=== PATIENT | male | born 1955 | race Caucasian/White ===

== ENCOUNTER 2018-04-27 17:25 | Inpatient (IN) | payer MEDICAID ==
[~2018-04-27] VITALS: Ht 182.9 cm; Wt 88.5 kg
[~2018-04-27 17:25] MED LIST: PANT-47 PO
[2018-04-27 17:49] LABS: BASOPHILS % (AUTO) 0.2 % (0-1); EOSINOPHILS # (AUTO) 0.1 X10'3 (0-0.9); EOSINOPHILS % (AUTO) 1.2 % (0-6); HEMATOCRIT 45.1 % (42.0-52.0); HEMOGLOBIN 15.6 g/dl (14.0-17.9); LYMPHOCYTES # (AUTO) 1.7 X10'3 (1.1-4.8); LYMPHOCYTES % (AUTO) 15.8 % (21-51); MEAN CORPUSCULAR HEMOGLOBIN 32.3 PG (27.0-31.0); MEAN CORPUSCULAR HGB CONC 34.5 % (33.0-36.5); MEAN CORPUSCULAR VOLUME 93.5 FL (78-98); MEAN PLATELET VOLUME 8.3 FL (7.4-10.4); NEUTROPHILS % (AUTO) 73.8 % (42-75); PLATELET COUNT 214 X10'3 (140-440); RED BLOOD COUNT 4.82 X10'6 (4.70-6.10); WHITE BLOOD COUNT 10.8 X10'3 (4.5-11.0)
[2018-04-27 18:01] LABS: INR 1.1 INR; PARTIAL THROMBOPLASTIN TIME 27 SECONDS (22-32)
[2018-04-27 18:05] LABS: ALANINE AMINOTRANSFERASE 81 U/L (12-78); ALBUMIN 3.3 G/DL (3.4-5.0); ALBUMIN/GLOBULIN RATIO 1.3 (1.1-1.5); ALKALINE PHOSPHATASE 70 IU/L (46-116); ANION GAP 15 (8-16); ASPARTATE AMINO TRANSFERASE 41 U/L (10-37); BILIRUBIN,TOTAL 1.1 MG/DL (0.1-1.0); BLOOD UREA NITROGEN 16 MG/DL (7-18); BUN/CREATININE RATIO 15.7 (5.4-32.0); CALCIUM 8.3 MG/DL (8.5-10.1); CHLORIDE 102 MMOL/L (99-107); CREATININE 1.02 MG/DL (0.60-1.10); GLUCOSE 117 MG/DL (70-104); POTASSIUM 3.6 MMOL/L (3.5-5.1); SODIUM 135 MMOL/L (135-145); TOTAL CARBON DIOXIDE 18.5 MMOL/L (24-32); TOTAL PROTEIN 5.9 G/DL (6.4-8.2); eGFR 74 ML/MIN
[2018-04-27] MEDS ORDERED: IBUP-1984 PO (18:21)
[2018-04-27] MEDS ORDERED: aspirin 81mg tab.chew PO ONE (18:45)
[2018-04-27] MEDS ORDERED: enoxaparin 100mg/ml syringe SUBCUT ONE (18:45)
[2018-04-27 19:19] LABS: URINE AMPHETAMINE SCREEN NEGATIVE (Neg); URINE BARBITUATE SCREEN NEGATIVE (Neg); URINE BENZODIAZEPINES SCREEN NEGATIVE (Neg); URINE CANNABINOID SCREEN NEGATIVE (Neg); URINE COCAINE SCREEN NEGATIVE (Neg); URINE METHADONE SCREEN NEGATIVE (Neg); URINE OPIATE SCREEN NEGATIVE (Neg); URINE PHENCYCLIDINE SCREEN NEGATIVE (Neg)
[2018-04-27] MEDS ORDERED: metoprolol tartrate 1mg/ml inj IV ONE (19:30)
[2018-04-27] MEDS ORDERED: morphine 4 MG/ML inj SYRINge IV ONE (19:45)
[2018-04-27 19:53] LABS: MAGNESIUM 1.7 MG/DL (1.5-2.4)
[2018-04-27] MEDS ORDERED: acetaminophen 325mg tablet PO PRN (21:50)
[2018-04-27] MEDS: regadenoson 0.4mg/5ml syringe IV ONE (21:50)
[2018-04-27] MEDS ORDERED: magnesium 1gm/100ml D5W IVPB 100 ML IV PRN (21:50)
[2018-04-27] MEDS: nicotine 14mg patch - 24hr TD SCH (21:50)
[2018-04-27] MEDS ORDERED: metoprolol tartrate 1mg/ml inj IV PRN (21:50)
[2018-04-27] MEDS ORDERED: magnesium hydroxide 30ml (MOM) UD suspension PO PRN (21:50)
[2018-04-27] MEDS ORDERED: potassium Cl 40MEQ/NS 500ml 500 ML IV PRN ×2 (21:50)
[2018-04-27] MEDS ORDERED: ipratropium/albuterol 3ml nebule NEB PRN (21:50)
[2018-04-27] MEDS ORDERED: magnesium 4gm in 100ml NS 100 ML IV PRN (21:50)
[2018-04-27] MEDS ORDERED: ondansetron/PF 4mg/2ml inj IV PRN (21:50)
[2018-04-27] MEDS ORDERED: nitroGLYCERIN 0.4mg SUBLingual tab SL PRN (21:50)
[2018-04-27] MEDS ORDERED: CAFFEINE CITRATE 60 MG/3 ML injection vial IV PRN (21:50)
[2018-04-27] MEDS ORDERED: morphine 2 MG/ML inj. syringe IV PRN (21:50)
[2018-04-27] MEDS ORDERED: potassium Cl 20 mEq SR tablet PO PRN ×2 (21:50)
[2018-04-27] MEDS ORDERED: mag hydrox/Alum hydrox/simeth 30ml oral suspension PO PRN (21:50)
[2018-04-27 22:45] VITALS: BP 140/104
[2018-04-27] MEDS: furosemide 10 MG/1 ML 10ml inj IV SCH (23:11)
[2018-04-27] MEDS: atorvastatin 20mg tablet PO SCH (23:12)
[2018-04-28] VITALS (16 sets, daily range): BP systolic 109–169; BP diastolic 73–113
[2018-04-28 06:15] LABS: BASOPHILS % (AUTO) 0.3 % (0-1); EOSINOPHILS # (AUTO) 0.2 X10'3 (0-0.9); EOSINOPHILS % (AUTO) 2.1 % (0-6); HEMATOCRIT 43.9 % (42.0-52.0); HEMOGLOBIN 15.5 g/dl (14.0-17.9); LYMPHOCYTES # (AUTO) 1.8 X10'3 (1.1-4.8); LYMPHOCYTES % (AUTO) 19.1 % (21-51); MEAN CORPUSCULAR HEMOGLOBIN 32.5 PG (27.0-31.0); MEAN CORPUSCULAR HGB CONC 35.3 % (33.0-36.5); MEAN CORPUSCULAR VOLUME 92.1 FL (78-98); MEAN PLATELET VOLUME 8.1 FL (7.4-10.4); NEUTROPHILS # (AUTO) 6.4 X10'3 (1.8-7.7); NEUTROPHILS % (AUTO) 67.5 % (42-75); PLATELET COUNT 197 X10'3 (140-440); RED BLOOD COUNT 4.77 X10'6 (4.70-6.10); RED CELL DISTRIBUTION WIDTH 13.8 % (11.5-14.5); WHITE BLOOD COUNT 9.5 X10'3 (4.5-11.0)
[2018-04-28 06:28] LABS: ALANINE AMINOTRANSFERASE 78 U/L (12-78); ALBUMIN 3.1 G/DL (3.4-5.0); ALBUMIN/GLOBULIN RATIO 1.2 (1.1-1.5); ALKALINE PHOSPHATASE 60 IU/L (46-116); ANION GAP 9 (8-16); ASPARTATE AMINO TRANSFERASE 39 U/L (10-37); BILIRUBIN,TOTAL 1.8 MG/DL (0.1-1.0); BLOOD UREA NITROGEN 15 MG/DL (7-18); BUN/CREATININE RATIO 13.5 (5.4-32.0); CALCIUM 8.1 MG/DL (8.5-10.1); CHLORIDE 103 MMOL/L (99-107); CREATININE 1.11 MG/DL (0.60-1.10); GLUCOSE 97 MG/DL (70-104); POTASSIUM 3.7 MMOL/L (3.5-5.1); SODIUM 138 MMOL/L (135-145); TOTAL CARBON DIOXIDE 26.1 MMOL/L (24-32); TOTAL PROTEIN 5.7 G/DL (6.4-8.2); eGFR 68 ML/MIN
[2018-04-28 06:32] LABS: CHOL/HDL RATIO 3.5 (0.00-4.99); CHOLESTEROL 114 MG/DL (0-200); HDL CHOLESTEROL 33 MG/DL (35-60); LDL CHOLESTEROL 73 MG/DL (50-100); MAGNESIUM 1.6 MG/DL (1.5-2.4); TRIGLYCERIDES 90 MG/DL (20-135)
[2018-04-28] MEDS: nitroGLYCERIN 0.4mg/hour patch TD SCH (08:00)
[2018-04-28] MEDS: K and/or MAG REPLACEMENT MC SCH (08:00)
[2018-04-28] MEDS: nicotine 14mg patch - 24hr TD SCH (08:00)
[2018-04-28] MEDS ORDERED: carVEDilol 3.125mg tablet PO SCH (08:00)
[2018-04-28] MEDS: pantoprazole 40 MG vial IV SCH (08:28)
[2018-04-28] MEDS: furosemide 10 MG/1 ML 10ml inj IV SCH (08:28)
[2018-04-28] MEDS: enoxaparin 60mg/0.6ml syringe SUBCUT SCH ×2 (08:29→20:46)
[2018-04-28] MEDS: atorvastatin 20mg tablet PO SCH (08:30)
[2018-04-28] MEDS: enoxaparin 30mg/0.3ml syringe SUBCUT SCH ×2 (08:30→20:47)
[2018-04-28] MEDS ORDERED: CAFFEINE CITRATE 60 MG/3 ML injection vial IV ONE (09:24)
[2018-04-28] MEDS: regadenoson 0.4mg/5ml syringe IV ONE (09:24)
[2018-04-28] MEDS ORDERED: regadenoson 0.4mg/5ml syringe IV ONE (09:24)
[2018-04-28] MEDS ORDERED: potassium Cl 20 mEq SR tablet PO STA (10:52)
[2018-04-28] MEDS ORDERED: magnesium 4gm in 100ml NS 100 ML IV ONE (10:55)
[2018-04-28] MEDS ORDERED: carVEDilol 3.125mg tablet PO ONE (11:00)
[2018-04-28] MEDS ORDERED: heparin sodium, porcine/PF 100unit/ml 5ML syringe ONE (11:23)
[2018-04-28] MEDS: lisinopril 5mg tablet PO SCH (11:44)
[2018-04-28] MEDS ORDERED: iohexol 350MG/ML 100ml bottle IV ONE (11:56)
[2018-04-28] MEDS: amiodarone 200mg tablet PO SCH ×2 (14:02→20:45)
[2018-04-28] MEDS: morphine 4 MG/ML inj SYRINge IV PRN ×2 (17:35→21:53)
[2018-04-28] MEDS: carVEDilol 3.125mg tablet PO SCH (20:46)
[2018-04-29 02:00] VITALS: BP 97/66
[2018-04-29 06:00] VITALS: BP 106/74
[2018-04-29 06:18] LABS: ALANINE AMINOTRANSFERASE 64 U/L (12-78); ALBUMIN 2.9 G/DL (3.4-5.0); ALBUMIN/GLOBULIN RATIO 1.1 (1.1-1.5); ALKALINE PHOSPHATASE 67 IU/L (46-116); ANION GAP 5 (8-16); ASPARTATE AMINO TRANSFERASE 23 U/L (10-37); BILIRUBIN,TOTAL 1.4 MG/DL (0.1-1.0); BLOOD UREA NITROGEN 22 MG/DL (7-18); BUN/CREATININE RATIO 17.1 (5.4-32.0); CHLORIDE 100 MMOL/L (99-107); CREATININE 1.29 MG/DL (0.60-1.10); GLUCOSE 143 MG/DL (70-104); POTASSIUM 3.5 MMOL/L (3.5-5.1); SODIUM 136 MMOL/L (135-145); TOTAL CARBON DIOXIDE 31.2 MMOL/L (24-32); TOTAL PROTEIN 5.5 G/DL (6.4-8.2); eGFR 57 ML/MIN
[2018-04-29 06:41] LABS: BASOPHILS % (AUTO) 0.4 % (0-1); EOSINOPHILS # (AUTO) 0.3 X10'3 (0-0.9); EOSINOPHILS % (AUTO) 2.5 % (0-6); HEMATOCRIT 43.6 % (42.0-52.0); LYMPHOCYTES # (AUTO) 1.7 X10'3 (1.1-4.8); MEAN CORPUSCULAR HEMOGLOBIN 31.8 PG (27.0-31.0); MEAN CORPUSCULAR HGB CONC 34.4 % (33.0-36.5); MEAN CORPUSCULAR VOLUME 92.4 FL (78-98); MEAN PLATELET VOLUME 8.9 FL (7.4-10.4); MONOCYTES # (AUTO) 0.9 X10'3 (0-0.9); NEUTROPHILS # (AUTO) 7.5 X10'3 (1.8-7.7); NEUTROPHILS % (AUTO) 72.1 % (42-75); PLATELET COUNT 187 X10'3 (140-440); RED BLOOD COUNT 4.72 X10'6 (4.70-6.10); RED CELL DISTRIBUTION WIDTH 13.8 % (11.5-14.5); WHITE BLOOD COUNT 10.3 X10'3 (4.5-11.0)
[2018-04-29] MEDS: pantoprazole 40 MG vial IV SCH (07:17)
[2018-04-29] MEDS: morphine 4 MG/ML inj SYRINge IV PRN ×4 (07:18→21:20)
[2018-04-29] MEDS: furosemide 10 MG/1 ML 10ml inj IV SCH (07:19)
[2018-04-29] MEDS: enoxaparin 30mg/0.3ml syringe SUBCUT SCH (07:20)
[2018-04-29] MEDS: enoxaparin 60mg/0.6ml syringe SUBCUT SCH (07:21)
[2018-04-29] MEDS: atorvastatin 20mg tablet PO SCH (07:21)
[2018-04-29] MEDS: amiodarone 200mg tablet PO SCH ×2 (07:21→19:59)
[2018-04-29] MEDS: carVEDilol 3.125mg tablet PO SCH ×2 (07:21→19:59)
[2018-04-29] MEDS: lisinopril 5mg tablet PO SCH (07:21)
[2018-04-29] MEDS: aspirin 81mg tablet.DR PO SCH (07:23)
[2018-04-29] MEDS: nicotine 14mg patch - 24hr TD SCH (07:23)
[2018-04-29] MEDS: nitroGLYCERIN 0.4mg/hour patch TD SCH (07:24)
[2018-04-29] MEDS ORDERED: enoxaparin 40mg/0.4ml syringe SUBCUT SCH (08:00)
[2018-04-29] MEDS: K and/or MAG REPLACEMENT MC SCH (08:00)
[2018-04-29 11:00] VITALS: BP 111/68
[2018-04-29 15:00] VITALS: BP 95/68
[2018-04-29 18:00] VITALS: BP 102/73
[2018-04-29] MEDS ORDERED: lisinopril 5mg tablet PO SCH (21:00)
[2018-04-29 22:00] VITALS: BP 101/76
[2018-04-30 02:00] VITALS: BP 108/77
[2018-04-30 06:00] VITALS: BP 123/84
[2018-04-30 06:08] LABS: BASOPHILS % (AUTO) 0.1 % (0-1); EOSINOPHILS # (AUTO) 0.1 X10'3 (0-0.9); EOSINOPHILS % (AUTO) 0.7 % (0-6); HEMATOCRIT 41.7 % (42.0-52.0); HEMOGLOBIN 14.7 g/dl (14.0-17.9); LYMPHOCYTES # (AUTO) 0.9 X10'3 (1.1-4.8); LYMPHOCYTES % (AUTO) 8.2 % (21-51); MEAN CORPUSCULAR HEMOGLOBIN 32.8 PG (27.0-31.0); MEAN CORPUSCULAR HGB CONC 35.2 % (33.0-36.5); MEAN CORPUSCULAR VOLUME 93.2 FL (78-98); MEAN PLATELET VOLUME 8.7 FL (7.4-10.4); MONOCYTES # (AUTO) 0.7 X10'3 (0-0.9); MONOCYTES % (AUTO) 6.6 % (2-12); NEUTROPHILS # (AUTO) 9.3 X10'3 (1.8-7.7); NEUTROPHILS % (AUTO) 84.4 % (42-75); PLATELET COUNT 185 X10'3 (140-440); RED BLOOD COUNT 4.48 X10'6 (4.70-6.10); RED CELL DISTRIBUTION WIDTH 13.5 % (11.5-14.5)
[2018-04-30 07:01] LABS: ALANINE AMINOTRANSFERASE 59 U/L (12-78); ALBUMIN/GLOBULIN RATIO 1.1 (1.1-1.5); ALKALINE PHOSPHATASE 63 IU/L (46-116); ANION GAP 7 (8-16); ASPARTATE AMINO TRANSFERASE 23 U/L (10-37); BILIRUBIN,TOTAL 0.9 MG/DL (0.1-1.0); BLOOD UREA NITROGEN 32 MG/DL (7-18); BUN/CREATININE RATIO 20.3 (5.4-32.0); CALCIUM 8.1 MG/DL (8.5-10.1); CHLORIDE 97 MMOL/L (99-107); CREATININE 1.58 MG/DL (0.60-1.10); GLUCOSE 127 MG/DL (70-104); MAGNESIUM 1.7 MG/DL (1.5-2.4); POTASSIUM 3.7 MMOL/L (3.5-5.1); SODIUM 133 MMOL/L (135-145); TOTAL CARBON DIOXIDE 29.1 MMOL/L (24-32); TOTAL PROTEIN 5.7 G/DL (6.4-8.2); eGFR 45 ML/MIN
[2018-04-30] MEDS ORDERED: enoxaparin 40mg/0.4ml syringe SUBCUT SCH (08:00)
[2018-04-30] MEDS: nicotine 14mg patch - 24hr TD SCH (08:00)
[2018-04-30] MEDS ORDERED: pantoprazole 40mg Tablet.DR PO SCH (08:00)
[2018-04-30] MEDS: nitroGLYCERIN 0.4mg/hour patch TD SCH (08:00)
[2018-04-30] MEDS: aspirin 81mg tablet.DR PO SCH (08:46)
[2018-04-30] MEDS: atorvastatin 20mg tablet PO SCH (08:47)
[2018-04-30] MEDS: amiodarone 200mg tablet PO SCH (08:47)
[2018-04-30] MEDS: carVEDilol 3.125mg tablet PO SCH (08:47)
[2018-04-30] MEDS: furosemide 10 MG/1 ML 10ml inj IV SCH (08:49)
[2018-04-30] MEDS: morphine 4 MG/ML inj SYRINge IV PRN (08:50)
[2018-04-30] MEDS ORDERED: NICO-631 TD (09:55)
[2018-04-30] MEDS ORDERED: FURO-149 PO (09:55)
[2018-04-30] MEDS ORDERED: ATOR20TA66 PO (09:55)
[2018-04-30] MEDS ORDERED: POTA20TA19 PO (09:55)
[2018-04-30] MEDS ORDERED: AMIO200T40 PO (09:55)
[2018-04-30] MEDS ORDERED: LISI-642 PO (09:55)
[2018-04-30] MEDS ORDERED: ASPI-1071 PO (09:55)
[2018-04-30] MEDS ORDERED: COR3.125T PO (09:55)
[2018-04-30 11:00] VITALS: BP 110/66
== END 2018-04-30 15:45 | disposition home or self-care (01) | DRG 194 ==
LOC: ER 17:26 → ED HOLD 21:47 → PCU 3S 22:45
PROVIDERS: ADMIT Family Medicine; ATTEND Family Medicine
PROC: 4A02XM4 Measurement of Cardiac Total Activity, External Approach (ICD-10-PCS; principal; 2018-04-27)
PROC: 3E033HZ Introduction of Radioactive Substance into Peripheral Vein, Percutaneous Approach (ICD-10-PCS; 2018-04-27)
PROC: B3201ZZ Computerized Tomography (CT Scan) of Thoracic Aorta using Low Osmolar Contrast (ICD-10-PCS; 2018-04-28)
DX: I11.0 Hypertensive heart disease with heart failure (principal); I47.2 Ventricular tachycardia; I50.21 Acute systolic (congestive) heart failure; F17.210 Nicotine dependence, cigarettes, uncomplicated; I42.8 Other cardiomyopathies; Z59.0 Homelessness; Z82.49 Family history of ischemic heart disease and other diseases of the circulatory system; Z87.11 Personal history of peptic ulcer disease; Z79.899 Other long term (current) drug therapy; Z80.9 Family history of malignant neoplasm, unspecified; Z71.6 Tobacco abuse counseling
CPT/HCPCS: 36415; 71045; 71275; 78452; 80053; 80061; 80305; 83735; 83880; 84484; 85025; 85610; 85730; 87070; 93005; 93017; 93306; 93970; 94760; 96361; 96374; 96375; 99291; A9500; C9113; J1642; J1650; J1940; J2270; J3475; J3490; J7030; Q9967

== ENCOUNTER 2019-06-06 06:56 | Inpatient (IN) | payer MEDICAID ==
[2019-06-06] VITALS (7 sets, daily range): BP systolic 106–125; BP diastolic 76–103
[~2019-06-06] VITALS: Ht 182.9 cm; Wt 86.4 kg
[~2019-06-06 06:56] MED LIST changes: +ASPI-1071 PO; +ATOR20TA66 PO; +COR3.125T PO; +FURO-149 PO; +LISI-642 PO; +NICO-631 TD; -PANT-47 PO
[2019-06-06] MEDS ORDERED: amiodarone 150mg/dext, iso-os 100 ML IV ONE (07:10)
[2019-06-06] MEDS: amiodarone/D5 360MG/200ML BAG 200 ML IV SCH ×2 (07:30→13:14)
[2019-06-06 07:37] LABS: BASOPHILS # (AUTO) 0.1 X10'3 (0-0.2); BASOPHILS % (AUTO) 0.5 % (0-1); EOSINOPHILS # (AUTO) 0.2 X10'3 (0-0.9); HEMATOCRIT 48.6 % (42.0-52.0); HEMOGLOBIN 16.4 g/dl (14.0-17.9); LYMPHOCYTES # (AUTO) 2.6 X10'3 (1.1-4.8); LYMPHOCYTES % (AUTO) 21.2 % (21-51); MEAN CORPUSCULAR HEMOGLOBIN 30.9 PG (27.0-31.0); MEAN CORPUSCULAR HGB CONC 33.8 g/dL (33.0-36.5); MEAN CORPUSCULAR VOLUME 91.5 FL (78-98); MEAN PLATELET VOLUME 8.3 FL (7.4-10.4); MONOCYTES # (AUTO) 0.7 X10'3 (0-0.9); MONOCYTES % (AUTO) 5.7 % (2-12); NEUTROPHILS # (AUTO) 8.7 X10'3 (1.8-7.7); NEUTROPHILS % (AUTO) 70.6 % (42-75); PLATELET COUNT 260 X10'3 (140-440); RED BLOOD COUNT 5.31 X10'6 (4.70-6.10); RED CELL DISTRIBUTION WIDTH 13.4 % (11.5-14.5); WHITE BLOOD COUNT 12.3 X10'3 (4.5-11.0)
[2019-06-06 07:44] LABS: PARTIAL THROMBOPLASTIN TIME 29 SECONDS (22-32)
--- NOTE | 2019-06-06 08:07 | NUR ---
SPOKE TO MD ABOUT PT'S HR STILL IN THE 160S. 2ND EKG ORDERED
--- NOTE | 2019-06-06 08:18 | NUR ---
SPOKE TO ABOUT PT'S HR FLUCTUATING INTO THE 160-170S
[2019-06-06 08:31] LABS: ALANINE AMINOTRANSFERASE 43 U/L (12-78); ALBUMIN 4.1 G/DL (3.4-5.0); ALBUMIN/GLOBULIN RATIO 1.2 (1.1-1.5); ALKALINE PHOSPHATASE 75 IU/L (46-116); ANION GAP 15 (8-16); ASPARTATE AMINO TRANSFERASE 32 U/L (10-37); BILIRUBIN,TOTAL 1.1 MG/DL (0.1-1.0); BLOOD UREA NITROGEN 13 MG/DL (7-18); BUN/CREATININE RATIO 9.8 (5.4-32.0); CALCIUM 8.5 MG/DL (8.5-10.1); CHLORIDE 104 MMOL/L (99-107); CREATININE 1.32 MG/DL (0.60-1.10); GLUCOSE 161 MG/DL (70-104); POTASSIUM 3.8 MMOL/L (3.5-5.1); SODIUM 142 MMOL/L (135-145); TOTAL CARBON DIOXIDE 23.3 MMOL/L (24-32); TOTAL PROTEIN 7.4 G/DL (6.4-8.2); eGFR 55 ML/MIN
[2019-06-06 08:33] LABS: MAGNESIUM 1.8 MG/DL (1.5-2.4); PHOSPHORUS 3.1 MG/DL (2.3-4.5)
[2019-06-06] MEDS ORDERED: aspirin 81mg tab.chew PO ONE (09:10)
[2019-06-06] MEDS ORDERED: magnesium hydroxide 30ml (MOM) UD suspension PO PRN (09:55)
[2019-06-06] MEDS ORDERED: morphine 2 MG/ML inj. syringe IV PRN ×2 (09:55)
[2019-06-06] MEDS ORDERED: acetaminophen 325mg tablet PO PRN (09:55)
[2019-06-06] MEDS ORDERED: ondansetron/PF 4mg/2ml inj IV PRN (09:55)
[2019-06-06] MEDS ORDERED: mag hydrox/Alum hydrox/simeth 30ml oral suspension PO PRN (09:55)
[2019-06-06] MEDS ORDERED: heparin 10,000 units/1 ML INJ IV ONE (09:55)
[2019-06-06] MEDS ORDERED: heparin 10,000 units/1 ML INJ IV PRN (09:55)
[2019-06-06] MEDS ORDERED: LORazepam 2 mg/ml vial IV ONE (10:20)
[2019-06-06] MEDS ORDERED: lisinopril 5mg tablet PO SCH (10:35)
[2019-06-06] MEDS ORDERED: LORazepam 1 MG tablet PO PRN (10:50)
[2019-06-06] MEDS ORDERED: FURO-149 PO (10:58)
[2019-06-06] MEDS ORDERED: LISI-604 PO (10:58)
[2019-06-06] MEDS ORDERED: ASPI81TA52 PO (10:58)
[2019-06-06] MEDS ORDERED: NICO-731 TOP (10:58)
[2019-06-06] MEDS ORDERED: ATOR20TA66 PO (10:58)
[2019-06-06] MEDS ORDERED: CARV6.253 PO (10:58)
[2019-06-06] MEDS: heparin 25,000 UNIT/250ml bag 250 ML IV SCH (11:16)
[2019-06-06] MEDS: furosemide 20 MG/2 ML vial IV SCH (11:18)
--- NOTE | 2019-06-06 11:40 | NUR ---
Patient arrived to PCU 3023B on ED gurney and ambulated to bed with no assistance. Patient oriented to room and to call light. Patient put on bedside mobile monitoring, mobile 62. Patient vital signs: HR 120, RR: 20, O2 98% on room air, BP 138/92. Pain 0/10. Late lunch tray ordered. All immediate needs met at this time. Will continue to monitor.
[2019-06-06] MEDS ORDERED: digoxin 250mcg/ml 2ml ampule IV ONE ×2 (12:30→18:30)
[2019-06-06] MEDS ORDERED: carVEDilol 3.125mg tablet PO ONE (12:30)
--- NOTE | 2019-06-06 12:54 | NUR ---
New order from Dr. Alexis: 5 mg IV metroprolol Q5 minutes x 3 doses until HR 110.
[2019-06-06] MEDS ORDERED: metoprolol tartrate 1mg/ml inj IV SCH (12:55)
[2019-06-06] MEDS ORDERED: metoprolol tartrate 1mg/ml inj IV PRN (12:59)
--- NOTE | 2019-06-06 18:16 | NUR ---
Per Dr. Frank: Discontinue digoxin 250 mcg for 1830.
--- NOTE | 2019-06-06 18:42 | NUR ---
Problems reprioritized. Patient report given, questions answered & plan of care reviewed with MARIAELENA Gibson. Patient stable at transfer of care.
[2019-06-06] MEDS: carvedilol 6.25mg tablet PO SCH (19:18)
[2019-06-06] MEDS ORDERED: carVEDilol 3.125mg tablet PO SCH ×2 (20:00)
--- NOTE | 2019-06-06 23:21 | NUR ---
Patient in room PCU 3023. I have received report from Filomena FERRELL and had the opportunity to ask questions and assume patient care.
[2019-06-07] VITALS (14 sets, daily range): BP systolic 106–149; BP diastolic 60–102
[2019-06-07] MEDS: amiodarone/D5 360MG/200ML BAG 200 ML IV SCH ×3 (00:02→07:26)
[2019-06-07] MEDS: heparin 25,000 UNIT/250ml bag 250 ML IV SCH ×2 (00:16→07:31)
--- NOTE | 2019-06-07 04:40 | NUR ---
[facility] documentation: I have reviewed and agree with all interventions, assessments performed and documented by Viviana FERRELL. [facility] Medication Administration: For this medication-pass time frame, all medication were reviewed, dispensed, administered and documented per hospital policy by Viviana FERRELL.
--- NOTE | 2019-06-07 06:17 | NUR ---
Problems reprioritized. Patient report given, questions answered & plan of care reviewed with Dawson FERRELL and Melvina FERRELL.
--- NOTE | 2019-06-07 06:20 | NUR ---
Patient in room PCU 3023. I have received report from Rojas FERRELL and had the opportunity to ask questions and assume patient care.
[2019-06-07 06:45] LABS: BASOPHILS % (AUTO) 0.3 % (0-1); EOSINOPHILS # (AUTO) 0.2 X10'3 (0-0.9); EOSINOPHILS % (AUTO) 1.9 % (0-6); HEMATOCRIT 45.4 % (42.0-52.0); HEMOGLOBIN 15.6 g/dl (14.0-17.9); LYMPHOCYTES # (AUTO) 1.8 X10'3 (1.1-4.8); LYMPHOCYTES % (AUTO) 19.1 % (21-51); MEAN CORPUSCULAR HEMOGLOBIN 31.6 PG (27.0-31.0); MEAN CORPUSCULAR HGB CONC 34.4 g/dL (33.0-36.5); MEAN CORPUSCULAR VOLUME 91.9 FL (78-98); MEAN PLATELET VOLUME 8.4 FL (7.4-10.4); MONOCYTES # (AUTO) 0.8 X10'3 (0-0.9); MONOCYTES % (AUTO) 8.6 % (2-12); NEUTROPHILS # (AUTO) 6.5 X10'3 (1.8-7.7); NEUTROPHILS % (AUTO) 70.1 % (42-75); PLATELET COUNT 207 X10'3 (140-440); RED BLOOD COUNT 4.94 X10'6 (4.70-6.10); RED CELL DISTRIBUTION WIDTH 13.8 % (11.5-14.5); WHITE BLOOD COUNT 9.2 X10'3 (4.5-11.0)
[2019-06-07 07:00] LABS: ALANINE AMINOTRANSFERASE 32 U/L (12-78); ALBUMIN 3.6 G/DL (3.4-5.0); ALBUMIN/GLOBULIN RATIO 1.2 (1.1-1.5); ALKALINE PHOSPHATASE 64 IU/L (46-116); ANION GAP 11 (8-16); ASPARTATE AMINO TRANSFERASE 22 U/L (10-37); BLOOD UREA NITROGEN 16 MG/DL (7-18); BUN/CREATININE RATIO 15.5 (5.4-32.0); CALCIUM 8.3 MG/DL (8.5-10.1); CHLORIDE 104 MMOL/L (99-107); CHOL/HDL RATIO 3.2 (0.00-4.99); CHOLESTEROL 127 MG/DL (0-200); CREATININE 1.03 MG/DL (0.60-1.10); GLUCOSE 114 MG/DL (70-104); HDL CHOLESTEROL 40 MG/DL (35-60); LDL CHOLESTEROL 81 MG/DL (50-100); POTASSIUM 3.6 MMOL/L (3.5-5.1); SODIUM 139 MMOL/L (135-145); TOTAL CARBON DIOXIDE 24.3 MMOL/L (24-32); TOTAL PROTEIN 6.7 G/DL (6.4-8.2); TRIGLYCERIDES 81 MG/DL (20-135); eGFR 73 ML/MIN
--- NOTE | 2019-06-07 07:04 | NUR ---
Patient in room PCU 3023. I have received report from MARIAELENA Gibson and MARIAELENA Michelle and had the opportunity to ask questions and assume patient care.
[2019-06-07] MEDS: carvedilol 6.25mg tablet PO SCH ×2 (07:22→20:07)
[2019-06-07] MEDS: furosemide 20 MG/2 ML vial IV SCH (07:22)
[2019-06-07] MEDS ORDERED: apixaban 5mg tablet PO ONE (08:45)
--- NOTE | 2019-06-07 10:09 | NUR ---
Per Dr. Condon, DC Amiodarone drip and continue to monitor patients heart rate and rhythm. No new PO Amiodarone orders at this time.
[2019-06-07] MEDS ORDERED: lisinopril 5mg tablet PO SCH (10:55)
[2019-06-07] MEDS ORDERED: spironolactone 25 MG tablet PO SCH (10:55)
--- NOTE | 2019-06-07 18:02 | NUR ---
I have checked Melvina FERRELL ([facility]) charting and I agree with it.
--- NOTE | 2019-06-07 18:20 | NUR ---
Problems reprioritized. Patient report given, questions answered & plan of care reviewed with Paige FERRELL and Katiana FERRELL.
--- NOTE | 2019-06-07 18:37 | NUR ---
Patient in room PCU 3023. I have received report from Dawson FERRELL and Melvina FERRELL and had the opportunity to ask questions and assume patient care.
[2019-06-07] MEDS: apixaban 5mg tablet PO SCH (20:08)
[2019-06-08 02:00] VITALS: BP 132/78
[2019-06-08 06:00] VITALS: BP 126/89
[2019-06-08 06:08] LABS: BASOPHILS % (AUTO) 0.4 % (0-1); EOSINOPHILS # (AUTO) 0.2 X10'3 (0-0.9); EOSINOPHILS % (AUTO) 3.2 % (0-6); HEMATOCRIT 46.6 % (42.0-52.0); HEMOGLOBIN 16.2 g/dl (14.0-17.9); LYMPHOCYTES # (AUTO) 1.5 X10'3 (1.1-4.8); MEAN CORPUSCULAR HEMOGLOBIN 31.7 PG (27.0-31.0); MEAN CORPUSCULAR HGB CONC 34.7 g/dL (33.0-36.5); MEAN CORPUSCULAR VOLUME 91.2 FL (78-98); MEAN PLATELET VOLUME 8.4 FL (7.4-10.4); MONOCYTES # (AUTO) 0.8 X10'3 (0-0.9); MONOCYTES % (AUTO) 10.6 % (2-12); NEUTROPHILS # (AUTO) 5.1 X10'3 (1.8-7.7); NEUTROPHILS % (AUTO) 66.8 % (42-75); PLATELET COUNT 214 X10'3 (140-440); RED BLOOD COUNT 5.11 X10'6 (4.70-6.10); RED CELL DISTRIBUTION WIDTH 13.3 % (11.5-14.5); WHITE BLOOD COUNT 7.7 X10'3 (4.5-11.0)
[2019-06-08 06:11] LABS: ALANINE AMINOTRANSFERASE 32 U/L (12-78); ALBUMIN 3.5 G/DL (3.4-5.0); ALBUMIN/GLOBULIN RATIO 1.1 (1.1-1.5); ALKALINE PHOSPHATASE 62 IU/L (46-116); ANION GAP 10 (8-16); ASPARTATE AMINO TRANSFERASE 21 U/L (10-37); BILIRUBIN,TOTAL 1.1 MG/DL (0.1-1.0); BLOOD UREA NITROGEN 14 MG/DL (7-18); BUN/CREATININE RATIO 14.7 (5.4-32.0); CALCIUM 8.7 MG/DL (8.5-10.1); CHLORIDE 104 MMOL/L (99-107); CREATININE 0.95 MG/DL (0.60-1.10); GLUCOSE 90 MG/DL (70-104); POTASSIUM 3.8 MMOL/L (3.5-5.1); SODIUM 140 MMOL/L (135-145); TOTAL CARBON DIOXIDE 25.9 MMOL/L (24-32); TOTAL PROTEIN 6.8 G/DL (6.4-8.2); eGFR 81 ML/MIN
--- NOTE | 2019-06-08 06:13 | NUR ---
Problems reprioritized. Patient report given, questions answered & plan of care reviewed with Dawson FERRELL.
--- NOTE | 2019-06-08 06:15 | NUR ---
Patient in room PCU 3023. I have received report from Paige FERRELL and Katiana FERRELL and had the opportunity to ask questions and assume patient care.
[2019-06-08] MEDS ORDERED: aspirin 81mg tablet.DR PO SCH (08:00)
[2019-06-08] MEDS ORDERED: atorvastatin 20mg tablet PO SCH (08:00)
[2019-06-08] MEDS: apixaban 5mg tablet PO SCH (08:49)
[2019-06-08] MEDS: furosemide 20 MG/2 ML vial IV SCH (08:49)
[2019-06-08] MEDS: carvedilol 6.25mg tablet PO SCH (08:49)
[2019-06-08] MEDS ORDERED: LISI-604 PO (09:25)
[2019-06-08] MEDS ORDERED: ASPI81TA52 PO (09:25)
[2019-06-08] MEDS ORDERED: FURO-149 PO (09:25)
[2019-06-08] MEDS ORDERED: SPIR25TA PO (09:25)
[2019-06-08] MEDS ORDERED: ATOR20TA66 PO (09:25)
[2019-06-08] MEDS ORDERED: APIX5TAB3 PO (09:25)
[2019-06-08] MEDS ORDERED: CARV6.253 PO (09:25)
--- NOTE | 2019-06-08 11:40 | NUR ---
Pt DC'd. Pt stable on discharge. Pt appropriate and able to perform self care. IV removed, canula intact. Tele-box removed and returned to tele-tech. New prescription scripts were given to Pt to fill at pharmacy of choice. DC paperwork gone over with Pt. Allowed Pt to ask questions and then answer them. Went over new prescriptions with Pt and when to take new meds, as well as side effects. Pt will follow up with [facility] where he will then be transfered to [facility] to receive a PCP. PCP will then refer Pt to a air carrier inspector for cardiac follow up. Pt's belongings gathered and sent with Pt. Pt wheeled down to lobby via wheelchair and left on foot. Two bus passes were given to Pt for transportation. [facility]
[2019-06-08] MEDS ORDERED: spironolactone 25 MG tablet PO SCH (12:00)
== END 2019-06-08 11:40 | disposition home or self-care (01) | DRG 194 ==
LOC: ER 06:57 → PCU 3S 11:51
PROVIDERS: ADMIT Family Medicine; ATTEND Internal Medicine
DX: I11.0 Hypertensive heart disease with heart failure (principal); I42.0 Dilated cardiomyopathy; Z79.01 Long term (current) use of anticoagulants; I25.10 Atherosclerotic heart disease of native coronary artery without angina pectoris; I48.0 Paroxysmal atrial fibrillation; F41.9 Anxiety disorder, unspecified; R00.0 Tachycardia, unspecified; I50.23 Acute on chronic systolic (congestive) heart failure; Z59.0 Homelessness; Z79.82 Long term (current) use of aspirin; I25.2 Old myocardial infarction; Z79.899 Other long term (current) drug therapy; Z82.49 Family history of ischemic heart disease and other diseases of the circulatory system; Z87.11 Personal history of peptic ulcer disease; Z87.891 Personal history of nicotine dependence; Z91.19 Patient's noncompliance with other medical treatment and regimen; Z80.9 Family history of malignant neoplasm, unspecified
CPT/HCPCS: 36415; 71045; 80053; 80061; 83735; 83880; 84100; 84484; 85025; 85610; 85730; 87081; 93005; 93306; 96365; 96375; 99291; G0378; J0282; J1160; J1644; J1940; J2060

== ENCOUNTER 2023-10-18 17:40 | Inpatient (IN) | payer MEDICARE, MEDICAID ==
[~2023-10-18] VITALS: Ht 182.9 cm; Wt 93.7 kg
[~2023-10-18 17:40] MED LIST changes: +APIX5TAB3 PO; -ASPI-1071 PO; +ASPI81TA52 PO; +CARV6.253 PO; -COR3.125T PO; -LISI-642 PO; +LISI5TAB22 PO; -NICO-631 TD; +SPIR25TA PO
[2023-10-18] MEDS: aspirin 81mg tab.chew PO ONE (18:03)
[2023-10-18 18:29] LABS: BASOPHILS % (AUTO) 0.4 % (0-1); EOSINOPHILS # (AUTO) 0.1 X10'3 (0-0.9); EOSINOPHILS % (AUTO) 1.1 % (0-6); HEMATOCRIT 37.9 % (42.0-52.0); HEMOGLOBIN 13.1 g/dl (14.0-17.9); LYMPHOCYTES # (AUTO) 1.8 X10'3 (1.1-4.8); LYMPHOCYTES % (AUTO) 15.5 % (21-51); MEAN CORPUSCULAR HEMOGLOBIN 31.6 PG (27.0-31.0); MEAN CORPUSCULAR HGB CONC 34.5 g/dL (33.0-36.5); MEAN CORPUSCULAR VOLUME 91.8 FL (78-98); MEAN PLATELET VOLUME 7.3 FL (7.4-10.4); MONOCYTES # (AUTO) 1.1 X10'3 (0-0.9); NEUTROPHILS # (AUTO) 8.3 X10'3 (1.8-7.7); PLATELET COUNT 301 X10'3 (140-440); RED BLOOD COUNT 4.13 X10'6 (4.70-6.10); RED CELL DISTRIBUTION WIDTH 13.4 % (11.5-14.5); WHITE BLOOD COUNT 11.3 X10'3 (4.5-11.0)
[2023-10-18 18:37] LABS: ALANINE AMINOTRANSFERASE 27 U/L (12-78); ALBUMIN 3.3 G/DL (3.4-5.0); ALBUMIN/GLOBULIN RATIO 0.9 (1.1-1.5); ALKALINE PHOSPHATASE 83 IU/L (46-116); ANION GAP 11 (8-16); ASPARTATE AMINO TRANSFERASE 19 U/L (10-37); BILIRUBIN,TOTAL 1.1 MG/DL (0.1-1.0); BLOOD UREA NITROGEN 21 MG/DL (7-18); CALCIUM 8.1 MG/DL (8.5-10.1); CHLORIDE 103 MMOL/L (99-107); GLUCOSE 119 MG/DL (70-104); POTASSIUM 3.7 MMOL/L (3.5-5.1); SODIUM 137 MMOL/L (135-145); TOTAL CARBON DIOXIDE 23.2 MMOL/L (24-32); TOTAL PROTEIN 6.9 G/DL (6.4-8.2); eCRCL 80 ML/MIN; eGFR 75 ML/MIN
[2023-10-18 18:38] LABS: ABG BASE EXCESS -2.3 mmol/L (-2.0-2.0); ABG HCO3 20.1 mmol/L (22.0-26.0); ABG OXYGEN SATURATION 95.9 % (94-97); ABG PCO2 (T) 27.8 mmHg (35.0-48.0); ABG PH (T) 7.475 (7.340-7.440); ABG PO2 (T) 80.2 mmHg (75.0-100.0); ALLEN'S TEST POSITIVE; FCOHb 0.3 % (0.0-3.9); FHHb 4.1 % (0.0-5.0); FMetHb 0.2 % (0.0-1.5); FO2Hb 95.4 % (94-97); MODE ROOM AIR; PATIENT TEMPERATURE 36.7; TOTAL HEMOGLOBIN 13.9 G/dl (14.0-17.9)
[2023-10-18 18:42] LABS: APTT 31 SECONDS (22-32); INR 1.1 INR; PROTHROMBIN TIME 11.7 SECONDS (9.0-12.0)
[2023-10-18 18:45] LABS: MAGNESIUM 1.6 MG/DL (1.5-2.4); PHOSPHORUS 3.3 MG/DL (2.3-4.5); PRO BRAIN NATRIURETIC PEPTIDE 2292 PG/ML (0-125)
[2023-10-18] MEDS: amiodarone 150mg/dext, iso-os 100 ML IV ONE (19:14)
[2023-10-18 19:23] LABS: ETHANOL < 10 MG/DL (<10)
[2023-10-18] MEDS: apixaban 5mg tablet PO SCH (19:31)
[2023-10-18] MEDS: amiodarone/D5 360MG/200ML BAG 200 ML IV ONE (19:38)
[2023-10-18] MEDS ORDERED: potassium Cl 20 mEq SR tablet PO PRN ×2 (20:45)
[2023-10-18] MEDS ORDERED: potassium Cl 40MEQ/1/2NS 520ml 520 ML IV PRN (20:45)
[2023-10-18] MEDS ORDERED: mag hydrox/Alum hydrox/simeth 30ml oral suspension PO PRN (20:45)
[2023-10-18] MEDS ORDERED: magnesium Cl slow-release 64mg tablet PO PRN (20:45)
[2023-10-18] MEDS ORDERED: magnesium 4gm in 100ml NS 100 ML IV PRN (20:45)
[2023-10-18] MEDS ORDERED: magnesium hydroxide 30ml (MOM) UD suspension PO PRN (20:45)
[2023-10-18] MEDS ORDERED: acetaminophen 325mg tablet PO PRN (20:45)
[2023-10-18] MEDS ORDERED: magnesium 2GM in 50ml NS 50 ML IV PRN (20:45)
[2023-10-18] MEDS ORDERED: ondansetron/PF 4mg/2ml inj IV PRN (20:45)
[2023-10-18 22:00] VITALS: BP 142/82; PULSE 91; RESP 28; TEMP 96.9; O2SAT 96
[2023-10-18] MEDS: furosemide 20 MG/2 ML vial IV SCH (22:04)
[2023-10-18] MEDS: magnesium 2GM in 50ml NS 50 ML IV ONE (22:05)
[2023-10-18] MEDS: lisinopril 10 MG tablet PO SCH (22:07)
[2023-10-18 23:10] LABS: BILIRUBIN,URINE NEGATIVE (Neg); CLARITY,URINE CLEAR (Clear); COLOR,URINE YELLOW (Yellow); GLUCOSE, URINE NEGATIVE (Neg); KETONES,URINE NEGATIVE (Neg); LEUKOCYTE ESTERASE ,URINE NEGATIVE (Neg); NITRITES, URINE NEGATIVE (Neg); OCCULT BLOOD,URINE TRACE-INTACT (Neg); PROTEIN,URINE NEGATIVE (Neg)
[2023-10-18 23:14] LABS: UA COLLECTION TYPE CLN CATCH MIDSTREAM
[2023-10-18 23:23] LABS: BACTERIA,URINE NONE SEEN /HPF (Neg); MUCUS STRANDS NONE SEEN /LPF (Neg); RBC,URINE 0-2 /HPF (0-2); SQUAMOUS EPITHELIAL CELL,UR NONE SEEN /LPF (FEW); URINE AMPHETAMINE SCREEN NEGATIVE (Neg); URINE BARBITUATE SCREEN NEGATIVE (Neg); URINE BENZODIAZEPINES SCREEN NEGATIVE (Neg); URINE CANNABINOID SCREEN NEGATIVE (Neg); URINE COCAINE SCREEN NEGATIVE (Neg); URINE METHADONE SCREEN NEGATIVE (Neg); URINE OPIATE SCREEN NEGATIVE (Neg); URINE PHENCYCLIDINE SCREEN NEGATIVE (Neg); WBC,URINE NONE SEEN /HPF (0-4)
[2023-10-18 23:30] VITALS: RESP 18; O2SAT 98
[2023-10-18] MEDS: MIDAZolam 5mg/ml 2ml vial IV ONE (23:30)
[2023-10-19] VITALS (15 sets, daily range): BP systolic 94–156; BP diastolic 60–117; PULSE 74–131; RESP 15–29; TEMP 97.1–98.4; O2SAT 96–99
[2023-10-19] MEDS: amiodarone/D5 360MG/200ML BAG 200 ML IV SCH (01:28)
[2023-10-19] MEDS: docusate sod 100mg capsule PO SCH (08:00)
[2023-10-19] MEDS: K and/or MAG REPLACEMENT MC SCH (08:00)
[2023-10-19] MEDS: apixaban 5mg tablet PO SCH (09:07)
[2023-10-19 10:32] LABS: MAGNESIUM 2.3 MG/DL (1.5-2.4); POTASSIUM 3.7 MMOL/L (3.5-5.1); THYROID STIMULATING HORMONE 1.11 ulU/ml (0.34-4.50)
[2023-10-19 11:13] LABS: BASOPHILS % (AUTO) 0.3 % (0-1); EOSINOPHILS # (AUTO) 0.1 X10'3 (0-0.9); EOSINOPHILS % (AUTO) 0.5 % (0-6); HEMATOCRIT 41.6 % (42.0-52.0); HEMOGLOBIN 14.3 g/dl (14.0-17.9); LYMPHOCYTES # (AUTO) 1.4 X10'3 (1.1-4.8); LYMPHOCYTES % (AUTO) 12.6 % (21-51); MEAN CORPUSCULAR HEMOGLOBIN 31.4 PG (27.0-31.0); MEAN CORPUSCULAR HGB CONC 34.3 g/dL (33.0-36.5); MEAN CORPUSCULAR VOLUME 91.4 FL (78-98); MEAN PLATELET VOLUME 7.5 FL (7.4-10.4); MONOCYTES # (AUTO) 0.8 X10'3 (0-0.9); MONOCYTES % (AUTO) 7.5 % (2-12); NEUTROPHILS # (AUTO) 8.7 X10'3 (1.8-7.7); NEUTROPHILS % (AUTO) 79.1 % (42-75); PLATELET COUNT 329 X10'3 (140-440); RED BLOOD COUNT 4.55 X10'6 (4.70-6.10); RED CELL DISTRIBUTION WIDTH 13.5 % (11.5-14.5)
[2023-10-19] MEDS: carvedilol 6.25mg tablet PO SCH (11:23)
[2023-10-19 11:39] LABS: ALANINE AMINOTRANSFERASE 28 U/L (12-78); ALBUMIN 3.6 G/DL (3.4-5.0); ALBUMIN/GLOBULIN RATIO 0.9 (1.1-1.5); ALKALINE PHOSPHATASE 85 IU/L (46-116); ANION GAP 11 (8-16); ASPARTATE AMINO TRANSFERASE 19 U/L (10-37); BILIRUBIN,TOTAL 0.8 MG/DL (0.1-1.0); BLOOD UREA NITROGEN 17 MG/DL (7-18); BUN/CREATININE RATIO 15.3 (10.0-20.0); CALCIUM 8.7 MG/DL (8.5-10.1); CHLORIDE 99 MMOL/L (99-107); CREATININE 1.11 MG/DL (0.60-1.10); GLUCOSE 144 MG/DL (70-104); POTASSIUM 3.6 MMOL/L (3.5-5.1); SODIUM 136 MMOL/L (135-145); TOTAL CARBON DIOXIDE 25.8 MMOL/L (24-32); TOTAL PROTEIN 7.7 G/DL (6.4-8.2); eCRCL 72 ML/MIN; eGFR 66 ML/MIN
[2023-10-19] MEDS ORDERED: ondansetron 4mg rapidly disintigrating tab PO PRN (15:00)
[2023-10-19] MEDS: carVEDilol 12.5mg tablet PO SCH (19:38)
[2023-10-20] VITALS (10 sets, daily range): BP systolic 90–150; BP diastolic 60–101; PULSE 77–145; RESP 15–23; TEMP 97.5–98.6; O2SAT 94–100
[2023-10-20 08:56] LABS: CHOL/HDL RATIO 2.6 (0.00-4.99); CHOLESTEROL 77 MG/DL (0-200); HDL CHOLESTEROL 30 MG/DL (35-60); LDL CHOLESTEROL 38 MG/DL (50-100); MAGNESIUM 1.8 MG/DL (1.5-2.4); POTASSIUM 3.5 MMOL/L (3.5-5.1); TRIGLYCERIDES 60 MG/DL (20-135)
[2023-10-20] MEDS: amiodarone 200mg tablet PO SCH (10:00)
[2023-10-20 10:23] LABS: HEMOGLOBIN A1C 5.8 % (4.5-6.2)
[2023-10-21 02:00] VITALS: BP 130/79; PULSE 91; RESP 20; TEMP 97.6; O2SAT 97
[2023-10-21 07:22] VITALS: BP 119/91; PULSE 50; RESP 18; TEMP 97.6; O2SAT 99
[2023-10-21 08:00] VITALS: RESP 18; O2SAT 99
[2023-10-21 08:00] LABS: MAGNESIUM 1.7 MG/DL (1.5-2.4); POTASSIUM 3.6 MMOL/L (3.5-5.1)
[2023-10-21 08:45] LABS: ALANINE AMINOTRANSFERASE 22 U/L (12-78); ALBUMIN 3.2 G/DL (3.4-5.0); ALBUMIN/GLOBULIN RATIO 0.8 (1.1-1.5); ALKALINE PHOSPHATASE 79 IU/L (46-116); ANION GAP 10 (8-16); ASPARTATE AMINO TRANSFERASE 10 U/L (10-37); BILIRUBIN,TOTAL 1.2 MG/DL (0.1-1.0); BLOOD UREA NITROGEN 19 MG/DL (7-18); BUN/CREATININE RATIO 16.4 (10.0-20.0); CALCIUM 8.5 MG/DL (8.5-10.1); CHLORIDE 97 MMOL/L (99-107); CREATININE 1.16 MG/DL (0.60-1.10); GLUCOSE 136 MG/DL (70-104); SODIUM 134 MMOL/L (135-145); TOTAL CARBON DIOXIDE 27.3 MMOL/L (24-32); TOTAL PROTEIN 7.2 G/DL (6.4-8.2); eCRCL 69 ML/MIN; eGFR 63 ML/MIN
[2023-10-21] MEDS ORDERED: CARV12.5 PO (08:50)
[2023-10-21 11:45] VITALS: BP 138/77; PULSE 109; RESP 21; TEMP 97.9; O2SAT 96
[2023-10-21] MEDS ORDERED: AMIO200T67 PO (12:34)
[2023-10-21] MEDS ORDERED: AMI200T PO (12:34)
== END 2023-10-21 13:40 | disposition home or self-care (01) | DRG 309 ==
LOC: ER 17:41 → EDBEDREQ 20:54 → ED HOLD 20:59 → EDBEDREQ 22:00 → PCU 3S 23:03
PROVIDERS: ADMIT Family Medicine; ATTEND Internal Medicine
DX: I48.19 Other persistent atrial fibrillation (principal); I50.22 Chronic systolic (congestive) heart failure; Z59.00 Homelessness unspecified; I11.0 Hypertensive heart disease with heart failure; I42.0 Dilated cardiomyopathy; I95.9 Hypotension, unspecified; D72.829 Elevated white blood cell count, unspecified; Z79.899 Other long term (current) drug therapy; Z82.49 Family history of ischemic heart disease and other diseases of the circulatory system; Z87.891 Personal history of nicotine dependence; Z80.9 Family history of malignant neoplasm, unspecified; Z79.82 Long term (current) use of aspirin
CPT/HCPCS: 36415; 36600; 71045; 80053; 80061; 80305; 80320; 81001; 82803; 82948; 83036; 83735; 83880; 84100; 84132; 84145; 84443; 84484; 85018; 85025; 85610; 85730; 86870; 86885; 86900; 86901; 86902; 86905; 93005; 93306; 99285; G0378; J0282; J1940; J3475; J7030; J7040

== ENCOUNTER 2024-09-27 15:14 | Emergency (ER) | payer MEDICAID, MEDICARE ==
[~2024-09-27] VITALS: Ht 182.9 cm; Wt 86.4 kg
[~2024-09-27 15:14] MED LIST changes: +AMIO200T67 PO; +CARV12.5 PO; -CARV6.253 PO; +DOXY100C2 PO; -FURO-149 PO; -LISI5TAB22 PO; +LOSA50TA64 PO; +SACU1TAB PO
[2024-09-27 15:16] VITALS: BP 186/103; PULSE 73; RESP 16; O2SAT 99
[2024-09-27 15:50] VITALS: TEMP 98.6
== END 2024-09-27 16:05 | disposition home or self-care (01) ==
LOC: ER 15:15
DX: Z48.00 Encounter for change or removal of nonsurgical wound dressing (principal); L02.612 Cutaneous abscess of left foot; I10 Essential (primary) hypertension; I25.10 Atherosclerotic heart disease of native coronary artery without angina pectoris; F10.90 Alcohol use, unspecified, uncomplicated; Z79.82 Long term (current) use of aspirin
CPT/HCPCS: 99281